=== PATIENT | male | born 1945 | race Caucasian/White ===

== ENCOUNTER 2016-06-21 08:48 | Emergency (ER) | payer OTHER ==
[~2016-06-21] VITALS: Ht 168.9 cm; Wt 92.0 kg
[~2016-06-21 08:48] MED LIST: ADVAIR 250/501 DISK IH; AEROECLIPSE1 EACH MC; Aspirin PO; CLOPIDOGREL75 MG PO; COZAAR50 MG PO; CRESTOR20 MG PO; CRESTOR40 MG PO; DAILY VITAMIN1 EAC4 PO; DOXYCYCLINE HY100 MG PO; HYDRODIURIL,O12.5 M2 PO; LASIX40 MG PO; LITE COAT ASPI325 M1 PO; LOPRESSOR50 MG PO; LORTAB 5-325 M1 EACH PO; Lopressor PO; PREDNISONE10 MG PO; PREDNISONE50 MG PO; PROAIR HFA8.5 GM IH; PROVENTIL,2.5 MG/3 M IH; Percocet 5/325,Endoc PO; Proventil,Ventolin H IH; SALINE NOSE SPR45 M1 BOTH NARES; SINGULAIR10 MG PO; SPIRIVA RESPIMAT4 GM IH; Singulair PO; Symbicort 80-4.5 mcg IH; THERAGRAN1 TABLET PO; Zestril,Prinivil PO
[2016-06-21 10:21] LABS: HEMATOCRIT 45.7 % (38.0-50.0); MCH 31.9 PG (29.0-34.0); MCHC 32.8 G/DL (30.0-36.0); MCV 97.2 FL (86-99); MEAN PLAT.VOLUME 10.2 uM^3 (9.0-12.4); PLATELET COUNT 175 K/uL (156-360); RBC DIS.WIDTH-CV 14.1 % (11.8-14.6); RBC DIS.WIDTH-SD 48.2 % (39-53); WHITE BLOOD COUNT 13.3 K/uL (4.1-10.2)
[2016-06-21 10:32] LABS: CHLORIDE 102 mEq/L (99-109); POTASSIUM 4.2 mEq/L (3.7-5.4); SODIUM 143 mEq/L (136-147)
[2016-06-21 10:34] LABS: GLUCOSE 92 mg/dL (70-99)
[2016-06-21 10:35] LABS: ANION GAP 11 MEQ/L (2-14)
[2016-06-21 10:36] LABS: TOTAL BILIRUBIN 0.9 mg/dL (0.0-1.0)
[2016-06-21 10:37] LABS: ALKALINE PHOSPHATASE 62 IU/L (3-129)
[2016-06-21 10:38] LABS: GFR ESTIMATE (CALCULATED) > 59 mL/min/
[2016-06-21 10:39] LABS: UREA NITROGEN (BUN) 20 mg/dL (9-23)
[2016-06-21 11:09] LABS: EOSINOPHIL (%) 2.6 % (0-5); EOSINOPHIL COUNT 0.4 K/uL (0-0.3); IMMATURE GRANULOCYTE (%) 0.2 % (0.0-0.7); IMMATURE GRANULOCYTE COUNT 0.3 K/uL; LYMPHOCYTE COUNT 1.2 K/uL (1.0-2.8); MONOCYTE (%) 12.6 % (3-12); MONOCYTE COUNT 1.7 K/uL (0-0.8); NEUTROPHIL (%) 75.7 % (45-76); NEUTROPHIL COUNT 10.1 K/uL (1.8-6.4)
[2016-06-21 11:17] LABS: HEMATOLOGY COMMENT 1 SMEAR COMPATIBLE; USER ID MCB
[2016-06-21 14:09] LABS: ADD MIUA? NO; BILIRUBIN NEGATIVE; BLOOD NEGATIVE; COLOR YELLOW ((YELLOW)); GLUCOSE (STRIP) NEGATIVE; KETONES NEGATIVE; LEUKOCYTES NEGATIVE; NITRITE NEGATIVE; PROTEIN (STRIP) 30; SPECIFIC GRAVITY 1.023 (1.000-1.030)
[2016-06-21] MEDS ORDERED: PERCOCET 5/31 TABLET PO (16:13)
[2016-06-21] MEDS ORDERED: ZITHROMAX500 MG PO (16:13)
[2016-06-21 16:58] VITALS: BP 134/75
== END 2016-06-21 17:00 | disposition home or self-care (01) ==
LOC: EME → EDBD 08:48 → EME 08:48
PROVIDERS: Emergency Medicine
DX: J18.9 Pneumonia, unspecified organism (principal); S33.5XXA Sprain of ligaments of lumbar spine, initial encounter; X58.XXXA Exposure to other specified factors, initial encounter; Z87.891 Personal history of nicotine dependence; Z95.1 Presence of aortocoronary bypass graft; Z95.5 Presence of coronary angioplasty implant and graft; J45.909 Unspecified asthma, uncomplicated; J44.9 Chronic obstructive pulmonary disease, unspecified; I10 Essential (primary) hypertension; I25.2 Old myocardial infarction; Z79.82 Long term (current) use of aspirin
CPT/HCPCS: 71020; 80053; 81003; 85025; 93005; 94644; 99202; 99281; 99284; J1885; J2270; J2405

== ENCOUNTER 2016-06-25 09:24 | Inpatient (IN) | payer OTHER ==
[~2016-06-25] VITALS: Ht 167.6 cm; Wt 91.4 kg
[~2016-06-25 09:24] MED LIST changes: +PERCOCET 5/31 TABLET PO; +ZITHROMAX500 MG PO
[2016-06-25 10:20] LABS: CHLORIDE 103 mEq/L (99-109); POTASSIUM 4.1 mEq/L (3.7-5.4); SODIUM 141 mEq/L (136-147)
[2016-06-25 10:22] LABS: GLUCOSE 102 mg/dL (70-99)
[2016-06-25 10:23] LABS: ANION GAP 10 MEQ/L (2-14)
[2016-06-25 10:25] LABS: TOTAL BILIRUBIN 0.7 mg/dL (0.0-1.0)
[2016-06-25 10:26] LABS: ALKALINE PHOSPHATASE 60 IU/L (3-129); GFR ESTIMATE (CALCULATED) > 59 mL/min/
[2016-06-25 10:27] LABS: UREA NITROGEN (BUN) 20 mg/dL (9-23)
[2016-06-25 10:37] LABS: EOSINOPHIL (%) 2.2 % (0-5); EOSINOPHIL COUNT 0.2 K/uL (0-0.3); HEMATOCRIT 39.2 % (38.0-50.0); IMMATURE GRANULOCYTE (%) 0.2 % (0.0-0.7); LYMPHOCYTE COUNT 0.9 K/uL (1.0-2.8); MCH 31.9 PG (29.0-34.0); MCHC 32.9 G/DL (30.0-36.0); MEAN PLAT.VOLUME 10.5 uM^3 (9.0-12.4); MONOCYTE (%) 15.1 % (3-12); MONOCYTE COUNT 1.5 K/uL (0-0.8); NEUTROPHIL (%) 72.6 % (45-76); PLATELET COUNT 198 K/uL (156-360); RBC DIS.WIDTH-SD 50.2 % (39-53); RED BLOOD COUNT 4.04 M/uL (4.00-5.50); WHITE BLOOD COUNT 9.7 K/uL (4.1-10.2)
[2016-06-25 11:26] LABS: INFLUENZA A VIRAL ANTIGEN NEGATIVE; INFLUENZA B VIRAL ANTIGEN NEGATIVE
[2016-06-25] MEDS ORDERED: CRESTOR20 MG PO (12:29)
[2016-06-25] MEDS ORDERED: CLOPIDOGREL75 MG PO (12:31)
[2016-06-25] MEDS ORDERED: AZITHROMYCIN500 M1 PO (12:32)
[2016-06-25] MEDS ORDERED: PROVENTIL,2.5 MG/3 M IH (12:33)
[2016-06-25 14:27] LABS: INTER. NORMALIZED RATIO 1.2; PROTHROMBIN TIME 11.8 (9.2-11.2); PTT 28.2 (25-32)
[2016-06-25 14:36] LABS: TROP-I INTERPRETATION NEGATIVE; TROPONIN-I 0.14 ng/mL (0.0-0.30)
[2016-06-25 15:55] LABS: TROP-I INTERPRETATION NEGATIVE; TROPONIN-I 0.07 ng/mL (0.0-0.30)
[2016-06-25 17:31] VITALS: BP 158/82; BP 159/82
[2016-06-25 19:07] VITALS: BP 140/70
[2016-06-25 21:40] LABS: INTER. NORMALIZED RATIO 1.2; PROTHROMBIN TIME 12.2 (9.2-11.2)
[2016-06-25 21:51] LABS: PTT 51.5 (25-32)
[2016-06-25 23:21] VITALS: BP 161/73
[2016-06-26 03:26] VITALS: BP 134/74
[2016-06-26 05:04] LABS: HEMATOCRIT 38.9 % (38.0-50.0); MCH 31.7 PG (29.0-34.0); MCHC 32.9 G/DL (30.0-36.0); MCV 96.3 FL (86-99); MEAN PLAT.VOLUME 10.2 uM^3 (9.0-12.4); PLATELET COUNT 235 K/uL (156-360); RBC DIS.WIDTH-CV 13.6 % (11.8-14.6); RBC DIS.WIDTH-SD 46.5 % (39-53); RED BLOOD COUNT 4.04 M/uL (4.00-5.50); WHITE BLOOD COUNT 10.9 K/uL (4.1-10.2)
[2016-06-26 07:10] VITALS: BP 111/56; BP 141/84
[2016-06-26 11:30] VITALS: BP 148/72
[2016-06-26 14:47] VITALS: BP 142/74
[2016-06-26 19:20] VITALS: BP 156/74
[2016-06-26 23:30] VITALS: BP 137/68
[2016-06-27 03:15] VITALS: BP 157/69
[2016-06-27 09:25] VITALS: BP 143/73
[2016-06-27 12:30] VITALS: BP 159/70
[2016-06-27] MEDS ORDERED: XARELTO1 EACH PO (12:44)
[2016-06-27] MEDS ORDERED: SPIRIVA RESPIMAT4 GM IH (12:44)
[2016-07-01 16:33] LABS: ANTITHROMBIN III ACTIVITY+ 93 (80-120); DRVVT Mixing Study Interp Not Indicated (()); PROTEIN C FUNCTIONAL ACTIVITY+ 51 % (70-180); PTT-LA 35 sec (<=40); Protein S, Free 165 % normal (57-171); Thrombosis Consult Level Limited (()); dRVVT Screen 41 sec (<=45)
== END 2016-06-27 16:30 | disposition home or self-care (01) | DRG 176 ==
LOC: EME → EDBD 09:24 → EME 09:24 → EDOF 14:29 → 4EAST 14:29
PROVIDERS: Emergency Medicine; Internal Medicine
DX: I26.99 Other pulmonary embolism without acute cor pulmonale (principal); R04.2 Hemoptysis; J90 Pleural effusion, not elsewhere classified; J98.11 Atelectasis; J43.9 Emphysema, unspecified; I25.10 Atherosclerotic heart disease of native coronary artery without angina pectoris; I10 Essential (primary) hypertension; E78.5 Hyperlipidemia, unspecified; I65.29 Occlusion and stenosis of unspecified carotid artery; M71.22 Synovial cyst of popliteal space [Baker], left knee; E66.9 Obesity, unspecified; I73.9 Peripheral vascular disease, unspecified; Z68.32 Body mass index [BMI] 32.0-32.9, adult; Z95.5 Presence of coronary angioplasty implant and graft; Z79.52 Long term (current) use of systemic steroids; Z79.82 Long term (current) use of aspirin; Z87.891 Personal history of nicotine dependence; Z79.02 Long term (current) use of antithrombotics/antiplatelets; Z82.49 Family history of ischemic heart disease and other diseases of the circulatory system
CPT/HCPCS: 71020; 71275; 74176; 80053; 81240 90; 81241 90; 82945; 83090 90; 83605; 83615 91; 83880; 84157; 84484; 85025; 85027; 85240 90; 85300 90; 85303 90; 85305 90; 85306 90; 85384; 85610; 85613 90; 85730; 85730 90; 86140; 86146 90; 86147 90; 87040; 87070; 87205; 87502; 89051; 93005; 93306; 93970; 94640; 94640 76; 99281; 99285; J0696; J2930; J7030; J7050; J7512; J7644

== ENCOUNTER 2016-08-19 18:28 | Emergency (ER) | payer OTHER ==
[~2016-08-19] VITALS: Ht 167.6 cm; Wt 94.1 kg
[~2016-08-19 18:28] MED LIST changes: +AZITHROMYCIN500 M1 PO; +XARELTO1 EACH PO
[2016-08-19 19:42] LABS: MCH 31.1 PG (29.0-34.0); MCV 97.1 FL (86-99); MEAN PLAT.VOLUME 10.5 uM^3 (9.0-12.4); PLATELET COUNT 211 K/uL (156-360); RBC DIS.WIDTH-CV 13.9 % (11.8-14.6); RBC DIS.WIDTH-SD 49.4 % (39-53); RED BLOOD COUNT 4.12 M/uL (4.00-5.50); WHITE BLOOD COUNT 14.8 K/uL (4.1-10.2)
[2016-08-19 19:51] LABS: CHLORIDE 105 mEq/L (99-109); POTASSIUM 4.6 mEq/L (3.7-5.4); SODIUM 140 mEq/L (136-147)
[2016-08-19 19:53] LABS: GLUCOSE 88 mg/dL (70-99)
[2016-08-19 19:54] LABS: ANION GAP 11 MEQ/L (2-14)
[2016-08-19 19:57] LABS: GFR ESTIMATE (CALCULATED) > 59 mL/min/
[2016-08-19 19:58] LABS: UREA NITROGEN (BUN) 18 mg/dL (9-23)
[2016-08-19 20:00] LABS: BASOPHIL COUNT 0.1 K/uL (0-0.1); EOSINOPHIL (%) 2.2 % (0-5); EOSINOPHIL COUNT 0.3 K/uL (0-0.3); HEMATOCRIT 40.3 % (38.0-50.0); IMMATURE GRANULOCYTE (%) 0.3 % (0.0-0.7); IMMATURE GRANULOCYTE COUNT 0.1 K/uL; INSTRUMENT ABS NEUTROPHIL CT 11.4 K/uL; MCH 30.8 PG (29.0-34.0); MCHC 31.8 G/DL (30.0-36.0); MCV 96.9 FL (86-99); MEAN PLAT.VOLUME 10.7 uM^3 (9.0-12.4); MONOCYTE (%) 10.7 % (3-12); MONOCYTE COUNT 1.5 K/uL (0-0.8); NEUTROPHIL (%) 79.6 % (45-76); NEUTROPHIL COUNT 11.4 K/uL (1.8-6.4); PLATELET COUNT 219 K/uL (156-360); RBC DIS.WIDTH-CV 13.9 % (11.8-14.6); RBC DIS.WIDTH-SD 49.6 % (39-53); RED BLOOD COUNT 4.16 M/uL (4.00-5.50); WHITE BLOOD COUNT 14.4 K/uL (4.1-10.2)
[2016-08-19 22:15] LABS: TROP-I INTERPRETATION NEGATIVE; TROPONIN-I 0.02 ng/mL (0.0-0.30)
[2016-08-19 22:20] LABS: TROP-I INTERPRETATION NEGATIVE; TROPONIN-I 0.01 ng/mL (0.0-0.30)
[2016-08-19] MEDS ORDERED: PROAIR HFA8.5 GM IH (22:53)
[2016-08-19] MEDS ORDERED: HYCODAN SYRUP480 ML PO (23:02)
[2016-08-19 23:30] VITALS: BP 173/75
[2016-08-20] MEDS ORDERED: XARELTO20 MG PO (11:45)
[2016-08-20] MEDS ORDERED: NEO-SYNEPHRINE-15 M1 BOTH NARES (11:46)
[2016-08-20] MEDS ORDERED: SPIRIVA RESPIMAT4 GM IH (11:46)
[2016-08-20] MEDS ORDERED: LASIX20 MG PO (11:49)
== END 2016-08-20 00:18 | disposition left against medical advice (07) ==
LOC: EME 18:28
PROVIDERS: Emergency Medicine; Physician Assistant
DX: J44.0 Chronic obstructive pulmonary disease with (acute) lower respiratory infection (principal); J20.9 Acute bronchitis, unspecified; R09.02 Hypoxemia; Z95.1 Presence of aortocoronary bypass graft; I10 Essential (primary) hypertension; Z95.5 Presence of coronary angioplasty implant and graft; Z87.891 Personal history of nicotine dependence; Z79.01 Long term (current) use of anticoagulants
CPT/HCPCS: 71020; 80048; 83880; 84484; 85025; 85025 91; 85027; 93005; 94640; 94640 76; 99281; 99285; J2930

== ENCOUNTER 2016-08-20 08:41 | Inpatient (IN) | payer OTHER ==
[~2016-08-20] VITALS: Ht 167.6 cm; Wt 98.7 kg
[~2016-08-20 08:41] MED LIST changes: +HYCODAN SYRUP480 ML PO
[2016-08-20 09:33] LABS: EOSINOPHIL (%) 0 % (0-5); HEMATOCRIT 40.9 % (38.0-50.0); IMMATURE GRANULOCYTE (%) 0.3 % (0.0-0.7); INSTRUMENT ABS NEUTROPHIL CT 9.4 K/uL; LYMPHOCYTE COUNT 0.4 K/uL (1.0-2.8); MCH 30.7 PG (29.0-34.0); MCHC 31.8 G/DL (30.0-36.0); MCV 96.7 FL (86-99); MEAN PLAT.VOLUME 10.4 uM^3 (9.0-12.4); MONOCYTE (%) 2.8 % (3-12); MONOCYTE COUNT 0.3 K/uL (0-0.8); NEUTROPHIL (%) 93.2 % (45-76); NEUTROPHIL COUNT 9.4 K/uL (1.8-6.4); PLATELET COUNT 191 K/uL (156-360); RBC DIS.WIDTH-CV 13.5 % (11.8-14.6); RBC DIS.WIDTH-SD 48.3 % (39-53); RED BLOOD COUNT 4.23 M/uL (4.00-5.50); WHITE BLOOD COUNT 10.1 K/uL (4.1-10.2)
[2016-08-20 09:46] LABS: INTER. NORMALIZED RATIO 1.2; PROTHROMBIN TIME 12.4 (9.2-11.2); PTT 30.9 (25-32)
[2016-08-20 09:47] LABS: CHLORIDE 106 mEq/L (99-109); POTASSIUM 4.7 mEq/L (3.7-5.4); SODIUM 138 mEq/L (136-147)
[2016-08-20 09:50] LABS: ANION GAP 10 MEQ/L (2-14); GLUCOSE 146 mg/dL (70-99)
[2016-08-20 09:53] LABS: GFR ESTIMATE (CALCULATED) > 59 mL/min/
[2016-08-20 09:54] LABS: UREA NITROGEN (BUN) 20 mg/dL (9-23)
[2016-08-20 10:03] LABS: TROP-I INTERPRETATION NEGATIVE; TROPONIN-I 0.04 ng/mL (0.0-0.30)
[2016-08-20] MEDS ORDERED: XARELTO20 MG PO (11:45)
[2016-08-20] MEDS ORDERED: SPIRIVA RESPIMAT4 GM IH (11:46)
[2016-08-20] MEDS ORDERED: NEO-SYNEPHRINE-15 M1 BOTH NARES (11:46)
[2016-08-20] MEDS ORDERED: LASIX20 MG PO (11:49)
[2016-08-20 15:50] VITALS: BP 114/62
[2016-08-20 16:30] LABS: TROP-I INTERPRETATION POSITIVE; TROPONIN-I 1.42 ng/mL (0.0-0.30)
[2016-08-20 19:30] VITALS: BP 122/55
[2016-08-20 22:56] LABS: TROP-I INTERPRETATION POSITIVE; TROPONIN-I 4.03 ng/mL (0.0-0.30)
[2016-08-21] VITALS (8 sets, daily range): BP systolic 105–153; BP diastolic 52–80
[2016-08-22 04:21] VITALS: BP 152/80
[2016-08-22 06:26] LABS: EOSINOPHIL (%) 0 % (0-5); HEMATOCRIT 38.8 % (38.0-50.0); IMMATURE GRANULOCYTE (%) 0.8 % (0.0-0.7); IMMATURE GRANULOCYTE COUNT 0.2 K/uL; INSTRUMENT ABS NEUTROPHIL CT 19.7 K/uL; LYMPHOCYTE COUNT 0.5 K/uL (1.0-2.8); MCH 30.5 PG (29.0-34.0); MCV 95.6 FL (86-99); MEAN PLAT.VOLUME 10.6 uM^3 (9.0-12.4); MONOCYTE (%) 5.6 % (3-12); MONOCYTE COUNT 1.2 K/uL (0-0.8); NEUTROPHIL (%) 91.3 % (45-76); NEUTROPHIL COUNT 19.7 K/uL (1.8-6.4); PLATELET COUNT 238 K/uL (156-360); RBC DIS.WIDTH-CV 13.5 % (11.8-14.6); RBC DIS.WIDTH-SD 47.8 % (39-53); RED BLOOD COUNT 4.06 M/uL (4.00-5.50)
[2016-08-22 06:30] LABS: ALKALINE PHOSPHATASE 44 IU/L (3-129); ANION GAP 11 MEQ/L (2-14); CHLORIDE 101 MEQ/L (99-109); GFR ESTIMATE (CALCULATED) > 59 mL/min/; GLUCOSE 121 mg/dL (70-99); POTASSIUM 4.5 MEQ/L (3.7-5.4); SAMPLE HEMOLYSIS CHECK 0; SAMPLE ICTERIC CHECK 0; SAMPLE LIPEMIA CHECK 0; SODIUM 137 MEQ/L (136-147); TOTAL BILIRUBIN 0.4 MG/DL (0.0-1.0)
[2016-08-22 06:32] LABS: UREA NITROGEN (BUN) 32 mg/dL (9-23)
[2016-08-22 06:45] LABS: WHITE BLOOD COUNT 21.5 K/uL (4.1-10.2)
[2016-08-22 07:45] VITALS: BP 138/66
[2016-08-22 11:58] VITALS: BP 128/58
[2016-08-22 16:00] VITALS: BP 150/70
[2016-08-22] MEDS ORDERED: LEVOFLOXACIN750 MG PO (17:57)
[2016-08-22] MEDS ORDERED: ASPIR-LOW81 MG PO (17:57)
[2016-08-22] MEDS ORDERED: PREDNISONE10 MG PO (17:58)
== END 2016-08-22 18:30 | disposition home or self-care (01) | DRG 281 ==
LOC: EME → EDBD 08:41 → EDOF 11:25 → 5WEST 11:25 → EDOF 11:25 → 5WEST 15:45 → 4EAST 17:44
PROVIDERS: Emergency Medicine; Hospitalist; Internal Medicine
DX: I21.4 Non-ST elevation (NSTEMI) myocardial infarction (principal); I10 Essential (primary) hypertension; J44.1 Chronic obstructive pulmonary disease with (acute) exacerbation; R06.02 Shortness of breath; E78.5 Hyperlipidemia, unspecified; E66.9 Obesity, unspecified; I25.2 Old myocardial infarction; M25.511 Pain in right shoulder; M25.512 Pain in left shoulder; R00.0 Tachycardia, unspecified; I25.10 Atherosclerotic heart disease of native coronary artery without angina pectoris; I25.5 Ischemic cardiomyopathy; J20.9 Acute bronchitis, unspecified; I45.10 Unspecified right bundle-branch block; Z95.5 Presence of coronary angioplasty implant and graft; Z95.1 Presence of aortocoronary bypass graft; Z87.891 Personal history of nicotine dependence; Z68.35 Body mass index [BMI] 35.0-35.9, adult
CPT/HCPCS: 71010; 71020; 80048; 80053; 83880; 84484; 85025; 85025 91; 85027; 85379; 85610; 85730; 93005; 94640; 94640 76; 94799; 99202; 99281; 99285; J1940; J2920; J2930; J7644

== ENCOUNTER 2016-09-23 22:08 | Observation (INO) | payer OTHER ==
[~2016-09-23] VITALS: Ht 167.6 cm; Wt 89.9 kg
[~2016-09-23 22:08] MED LIST changes: +ASPIR-LOW81 MG PO; +LASIX20 MG PO; +LEVOFLOXACIN750 MG PO; +NEO-SYNEPHRINE-15 M1 BOTH NARES; +XARELTO20 MG PO
[2016-09-23 22:36] LABS: HEMATOCRIT 43.5 % (38.0-50.0); MCH 30.7 PG (29.0-34.0); MCHC 31.7 G/DL (30.0-36.0); MCV 96.7 FL (86-99); MEAN PLAT.VOLUME 9.8 uM^3 (9.0-12.4); PLATELET COUNT 236 K/uL (156-360); RBC DIS.WIDTH-CV 13.2 % (11.8-14.6); RBC DIS.WIDTH-SD 46.8 % (39-53); WHITE BLOOD COUNT 10.6 K/uL (4.1-10.2)
[2016-09-23 22:44] LABS: CHLORIDE 105 mEq/L (99-109); POTASSIUM 4.4 mEq/L (3.7-5.4); SODIUM 141 mEq/L (136-147)
[2016-09-23 22:46] LABS: GLUCOSE 84 mg/dL (70-99)
[2016-09-23 22:47] LABS: ANION GAP 7 MEQ/L (2-14)
[2016-09-23 22:50] LABS: GFR ESTIMATE (CALCULATED) > 59 mL/min/
[2016-09-23 22:51] LABS: UREA NITROGEN (BUN) 16 mg/dL (9-23)
[2016-09-23 22:57] LABS: TROP-I INTERPRETATION NEGATIVE; TROPONIN-I 0.02 ng/mL (0.0-0.30)
[2016-09-24] MEDS ORDERED: PREDNISONE5 MG PO (00:51)
[2016-09-24] MEDS ORDERED: CRESTOR10 MG PO (00:52)
[2016-09-24 02:00] VITALS: BP 171/79
[2016-09-24 03:09] LABS: TROP-I INTERPRETATION NEGATIVE; TROPONIN-I 0.03 ng/mL (0.0-0.30)
[2016-09-24 04:00] VITALS: BP 140/65
[2016-09-24 07:25] VITALS: BP 168/85
[2016-09-24 09:15] LABS: TROP-I INTERPRETATION NEGATIVE; TROPONIN-I 0.03 ng/mL (0.0-0.30)
[2016-09-24 11:15] VITALS: BP 140/68
== END 2016-09-24 15:59 | disposition home or self-care (01) ==
LOC: EME 22:08 → EDOF 09-24 01:14 → 4EAST 09-24 02:01
PROVIDERS: Hospitalist
DX: J44.1 Chronic obstructive pulmonary disease with (acute) exacerbation (principal); R07.89 Other chest pain; I10 Essential (primary) hypertension; E78.5 Hyperlipidemia, unspecified; I73.9 Peripheral vascular disease, unspecified; I25.10 Atherosclerotic heart disease of native coronary artery without angina pectoris; I25.2 Old myocardial infarction; Z95.5 Presence of coronary angioplasty implant and graft; Z95.1 Presence of aortocoronary bypass graft; Z86.711 Personal history of pulmonary embolism; I45.10 Unspecified right bundle-branch block; Z87.891 Personal history of nicotine dependence; Z79.01 Long term (current) use of anticoagulants; E66.9 Obesity, unspecified; Z68.31 Body mass index [BMI] 31.0-31.9, adult; M19.90 Unspecified osteoarthritis, unspecified site
CPT/HCPCS: 71020; 80048; 83880; 84484; 85027; 93005; 94640; 99202; 99281; 99285; G0378; J7512

== ENCOUNTER 2017-05-01 05:50 | Emergency (ER) | payer OTHER ==
[~2017-05-01] VITALS: Ht 167.6 cm; Wt 70.1 kg
[~2017-05-01 05:50] MED LIST changes: +CRESTOR10 MG PO; +PREDNISONE5 MG PO
[2017-05-01 06:59] LABS: BASOPHIL COUNT 0.1 K/uL (0-0.1); EOSINOPHIL (%) 2.3 % (0-5); EOSINOPHIL COUNT 0.2 K/uL (0-0.3); HEMATOCRIT 42.8 % (38.0-50.0); IMMATURE GRANULOCYTE (%) 0.4 % (0.0-0.7); INSTRUMENT ABS NEUTROPHIL CT 7.6 K/uL; MCH 28.4 PG (29.0-34.0); MCHC 31.5 G/DL (30.0-36.0); MCV 90.1 FL (86-99); MONOCYTE (%) 14.1 % (3-12); MONOCYTE COUNT 1.5 K/uL (0-0.8); NEUTROPHIL (%) 73.1 % (45-76); NEUTROPHIL COUNT 7.6 K/uL (1.8-6.4); PLATELET COUNT 168 K/uL (156-360); RBC DIS.WIDTH-CV 14.3 % (11.8-14.6); RBC DIS.WIDTH-SD 47.1 % (39-53); RED BLOOD COUNT 4.75 M/uL (4.00-5.50); WHITE BLOOD COUNT 10.3 K/uL (4.1-10.2)
[2017-05-01 07:42] LABS: ANION GAP 7 MEQ/L (2-14); CHLORIDE 104 MEQ/L (99-109); GFR ESTIMATE (CALCULATED) > 59 mL/min/ (58.99-99999); GLUCOSE 89 mg/dL (70-99); POTASSIUM 3.9 MEQ/L (3.7-5.4); SAMPLE HEMOLYSIS CHECK 0; SAMPLE ICTERIC CHECK 0; SAMPLE LIPEMIA CHECK 0; SODIUM 139 MEQ/L (136-147); UREA NITROGEN (BUN) 15 mg/dL (9-23)
[2017-05-01] MEDS ORDERED: PREDNISONE50 MG PO (08:37)
[2017-05-01] MEDS ORDERED: ZITHROMAX Z-PA250 MG PO (08:37)
[2017-05-01 08:59] VITALS: BP 150/59
== END 2017-05-01 09:00 | disposition home or self-care (01) ==
LOC: EME 05:50
PROVIDERS: Emergency Medicine
DX: J44.0 Chronic obstructive pulmonary disease with (acute) lower respiratory infection (principal); J20.9 Acute bronchitis, unspecified; J44.1 Chronic obstructive pulmonary disease with (acute) exacerbation; I25.2 Old myocardial infarction; Z95.1 Presence of aortocoronary bypass graft; Z87.891 Personal history of nicotine dependence
CPT/HCPCS: 71020; 80048; 85025; 93005; 94640; 99281; 99285; J7512

== ENCOUNTER 2017-09-05 06:33 | Inpatient (IN) | payer OTHER ==
[~2017-09-05] VITALS: Ht 167.6 cm; Wt 92.8 kg
[~2017-09-05 06:33] MED LIST changes: +ZITHROMAX Z-PA250 MG PO
[2017-09-05 08:03] LABS: BASOPHIL (%) 0.5 % (0-1); EOSINOPHIL COUNT 0.1 K/uL (0-0.3); HEMATOCRIT 42.6 % (38.0-50.0); HEMOGLOBIN 13.9 G/DL (12.5-16.6); IMMATURE GRANULOCYTE (%) 0.4 % (0.0-0.7); LYMPHOCYTE (%) 7.6 % (15-42); LYMPHOCYTE COUNT 0.6 K/uL (1.0-2.8); MCH 30.4 PG (29.0-34.0); MCHC 32.6 G/DL (30.0-36.0); MCV 93.2 FL (86-99); MONOCYTE (%) 17.8 % (3-12); MONOCYTE COUNT 1.4 K/uL (0-0.8); NEUTROPHIL (%) 72.7 % (45-76); NEUTROPHIL COUNT 5.8 K/uL (1.8-6.4); PLATELET COUNT 153 K/uL (156-360); RBC DIS.WIDTH-CV 15.1 % (11.8-14.6); RED BLOOD COUNT 4.57 M/uL (4.00-5.50)
[2017-09-05 08:11] LABS: INTER. NORMALIZED RATIO 1.2
[2017-09-05 08:13] LABS: ALBUMIN 4.3 g/dL (3.2-4.8); CHLORIDE 103 mEq/L (99-109); POTASSIUM 4.2 mEq/L (3.7-5.4); SODIUM 139 mEq/L (136-147)
[2017-09-05 08:14] LABS: PTT 30.1 SEC (25-37)
[2017-09-05 08:15] LABS: GLUCOSE 97 mg/dL (70-99); TOTAL PROTEIN 6.8 g/dL (6.4-8.3)
[2017-09-05 08:17] LABS: TOTAL BILIRUBIN 0.6 mg/dL (0.0-1.0)
[2017-09-05 08:19] LABS: ALKALINE PHOSPHATASE 71 IU/L (3-129); CREATININE 1.2 mg/dL (0.6-1.3); GFR ESTIMATE (CALCULATED) > 59 mL/min/ (58.99-99999)
[2017-09-05 08:20] LABS: UREA NITROGEN (BUN) 14 mg/dL (9-23)
[2017-09-05 08:21] LABS: AST (GOT) 19 IU/L (2-34)
[2017-09-05 08:22] LABS: ALT (GPT) 20 IU/L (3-49)
[2017-09-05 08:25] LABS: TROP-I INTERPRETATION NEGATIVE; TROPONIN-I 0.03 ng/mL (0.0-0.30)
[2017-09-05] MEDS ORDERED: INCRUSE ELLI62.5 MCG IH (11:37)
[2017-09-05] MEDS ORDERED: THEOPHYLLINE400 MG PO (11:37)
[2017-09-05] MEDS ORDERED: SYMBICORT60 INHALAT IH (11:37)
[2017-09-05] MEDS ORDERED: ADULT ASPIRIN R81 MG PO (11:38)
[2017-09-05 14:18] VITALS: BP 127/64
[2017-09-05 16:01] VITALS: BP 137/55
[2017-09-05 19:45] VITALS: BP 142/79
[2017-09-05 23:36] VITALS: BP 150/70
[2017-09-06 04:17] VITALS: BP 135/83
[2017-09-06 06:32] LABS: INTER. NORMALIZED RATIO 1.2
[2017-09-06 07:44] VITALS: BP 178/77
[2017-09-06 11:10] VITALS: BP 141/65
[2017-09-06 15:00] VITALS: BP 145/82
[2017-09-06 18:41] VITALS: BP 136/64
[2017-09-06 23:35] VITALS: BP 117/77
[2017-09-07 04:04] VITALS: BP 158/74
[2017-09-07 05:38] LABS: INTER. NORMALIZED RATIO 1.3
[2017-09-07 07:32] VITALS: BP 131/72
[2017-09-07] MEDS ORDERED: PREDNISONE10 MG PO (11:20)
[2017-09-07] MEDS ORDERED: ZITHROMAX250 MG PO (11:20)
[2017-09-07] MEDS ORDERED: XARELTO15 MG PO (11:21)
[2017-09-07] MEDS ORDERED: XARELTO20 MG PO (11:22)
[2017-09-07 11:52] VITALS: BP 129/60
== END 2017-09-07 12:43 | disposition home or self-care (01) | DRG 176 ==
LOC: EME → EDBD 06:33 → EDOF 12:16 → ENRESERV 12:19 → 4SOUTH 13:58
PROVIDERS: Emergency Medicine; Hospitalist
DX: I26.99 Other pulmonary embolism without acute cor pulmonale (principal); J44.1 Chronic obstructive pulmonary disease with (acute) exacerbation; I82.441 Acute embolism and thrombosis of right tibial vein; I82.4Z1 Acute embolism and thrombosis of unspecified deep veins of right distal lower extremity; R09.02 Hypoxemia; J20.9 Acute bronchitis, unspecified; E11.51 Type 2 diabetes mellitus with diabetic peripheral angiopathy without gangrene; E78.5 Hyperlipidemia, unspecified; I10 Essential (primary) hypertension; E66.9 Obesity, unspecified; I25.10 Atherosclerotic heart disease of native coronary artery without angina pectoris; Z86.711 Personal history of pulmonary embolism; Z87.11 Personal history of peptic ulcer disease; Z87.891 Personal history of nicotine dependence; Z95.1 Presence of aortocoronary bypass graft; Z95.5 Presence of coronary angioplasty implant and graft; Z68.33 Body mass index [BMI] 33.0-33.9, adult; I25.2 Old myocardial infarction; Z79.02 Long term (current) use of antithrombotics/antiplatelets; Z79.51 Long term (current) use of inhaled steroids; Z79.01 Long term (current) use of anticoagulants; Z79.82 Long term (current) use of aspirin; Z82.49 Family history of ischemic heart disease and other diseases of the circulatory system
CPT/HCPCS: 71046; 71275; 80053; 83605; 83880; 84484; 85025; 85379; 85610; 85730; 87040; 93005; 93970; 94640; 94640 76; 94799; 99202; 99281; 99284; J0456; J0696; J1650; J2930; J7040; J7512; J7644